=== PATIENT | male | born 1970 | race Caucasian/White ===

== ENCOUNTER 2021-09-19 11:47 | Emergency (ER) | payer OTHER ==
[~2021-09-19] VITALS: Ht 170.2 cm; Wt 86.2 kg
[2021-09-19 13:16] LABS: ABSOLUTE NEUTROPHILS 3.6 thou/uL (1.4-8.2); BASOPHILS 0.6 % (0.0-2.0); EOSINOPHILS 0.1 % (0.0-3.0); LYMPHOCYTES 17.6 % (24.0-44.0); MCHC 32.7 g/dL (28.0-37.0); MCV 85.6 fL (80.0-100.0); PLATELET COUNT 169 thou/uL (150-400); POLYS 73.7 % (36.0-66.0); RBC 5.02 mil/uL (4.50-6.00); RDW 14.3 % (10.5-14.5); WBC 4.8 thou/uL (4.0-11.0)
[2021-09-19 13:23] LABS: CALCIUM 8.4 mg/dL (8.5-10.1); CREATININE 1.3 mg/dL (0.7-1.3); POTASSIUM 3.8 mmol/L (3.5-5.1)
[2021-09-19 13:33] LABS: TOTAL BILIRUBIN 1.2 mg/dL (0.2-1.0); TOTAL PROTEIN 7.8 g/dL (6.4-8.2)
[2021-09-19 14:56] LABS: D-DIMER 0.84 ug/mLFEU (0.19-0.50); INR 1.05; PROTIME 11.4 Seconds (10.5-12.1)
--- NOTE | 2021-09-19 15:40 | EKG ---
[address] [address] ELECTROCARDIOGRAM REPORT Name: JEB ZULUAGA JR Room #: REG SOPHY [place]#: [id number] Admission: 09/19/21 Attend Phys: Discharge: Date of : 72 Report #: [id number] [facility] ED Test Date: 2021-09-19 Test Time: 11:55:37 Pat Name: JEB ZULUAGA Department: Room: Gender: Stick Inserter: NAYELY : 1970 Requested By: Judit Newman Order Number: [id number] MD: Jacob Crews Measurements Intervals [place] Rate: 121 P: 53 KS: 164 QRS: 51 QRSD: 86 T: 4 QT: 297 QTc: 422 Interpretive Statements Sinus tachycardia Baseline wander in lead(s) V2 No previous ECG available for comparison Electronically Signed On 09-19-2021 15:39:48 HOT PIPE GAUGER by Jacob Crews [email or web address] <ELECTRONICALLY SIGNED> By: Jacob Crews MD, [facility] 09/19/21 1539 1155 1155 Jacob Crews MD, FACC /EPI
[2021-09-19] MEDS ORDERED: IBUPROFEN 600600 M1 PO (16:05)
[2021-09-19] MEDS ORDERED: DECADRON6 MG PO (16:05)
[2021-09-19] MEDS ORDERED: ZOFRAN ODT4 MG PO (16:05)
[2021-09-19 16:24] VITALS: BP 132/91
== END 2021-09-19 16:33 | disposition home or self-care (01) ==
LOC: ER 11:47
PROVIDERS: Emergency Medicine; Student in an Organized Health Care Education/Training Program
DX: U07.1 COVID-19 (principal); I31.9 Disease of pericardium, unspecified

== ENCOUNTER 2021-10-02 10:21 | Inpatient (IN) | payer OTHER ==
[~2021-10-02] VITALS: Ht 170.2 cm; Wt 85.0 kg
--- NOTE | ~2021-10-02 | HC ---
[facility] [place] [address] CONSULTATION Name: JEB ZULUAGA JR Room #: 219-P ADM IN M.R.#: [id number] Admission: 10/02/21 Attend Phys: Wm Veras MD Discharge: Date of : 72 Report #: [id number] THIS REPORT FOR: cc: NOBLE - No family physician/PCP NOBLE - No family physician/PCP Gopi Child MD ~ DATE OF SERVICE: 10/03/2021 ROOM NUMBER: 219. HISTORY OF PRESENT ILLNESS: This is a 51-year-old male patient who was admitted with CVA. This patient presented to Emergency Room with a very poorly defined history. He is weak on the left side. It is not certain how long his weakness is going on. He appeared to be somewhat confused. He was there with COVID prior to Emergency Room, when his symptoms of this left-sided weakness started is not clear. He was seen by [facility] and he was outside the window for any intervention. Initial plan was to transfer this patient to some higher level of care, but he was refused because of COVID crisis and he was admitted here. He is a very poor historian. He says he is weak on the left side, is probably a few days' duration, but I am not sure how long actually it is going on. He had a CT scan and MRI since then. MRI was done without contrast only and that confirmed that the patient had multiple strokes, exclusively on the right side. They are small CVAs. A CT angiogram showed some abnormality of the right MCA, which is not very well defined. He continued to be about the same, the best I can tell. REVIEW OF SYSTEMS: Indicates he has COVID. He does have diabetes and hypertension. He does not provide much history in that regard. He is weak on the left side, looks like he is neglecting his weakness. He denies the use of drugs. [facility] has recommended toxicology screen, but I do not see it and I do not believe it was done, so I asked the nurses to see if they can do it today, although it may not be positive. He denies any smoking or drinking alcohol. In fact, he says he has never done the drugs. His rest of the 14-point review of system was mostly unremarkable. PAST MEDICAL HISTORY: Negative for any stroke. FAMILY HISTORY: According to him is negative for stroke. SOCIAL HISTORY: He was pretty emphatic that he does not drink any alcohol or smoke. PHYSICAL EXAMINATION: His examination indicate that he is a well-built [facility] [address] [place] [address] CONSULTATION Name: JEB ZULUAGA JR Room #: 219-P [facility] IN ..#: [id number] Admission: 10/02/21 Attend Phys: Wm Veras MD Discharge: Date of : 72 Report #: [id number] individual. He sometimes looks confused, but when I asked him what month it is, he is able to tell me; what hospital he is in, he is able to tell me. His cranial nerve examination shows a question of left facial palsy, but he did reasonably well with the visual field, but I cannot be certain because his cooperation was not all that great. He is definitely weak in the left upper and left lower extremity and his strength is estimated to be 3/5. He did position sense much better on the right side as compared to the left side, although he was able to tell the position sense on the left side also majority, but not all the time. He says touch feels same on both sides. He does have neglect on the left side. I cannot tell about the plantar. He is weak on the left side and it is difficult to tell about ataxia. He could not cooperate with the fundus examination. He is a pretty well-built individual. He does not have any edema. There is no thyroid mass. Blood pressure is 125/88, pulse is 66, temperature is 97.8. Cardiac examination appear unremarkable. No respiratory difficulty was noticed. His hearing and vision looks adequate. He had multiple testing done since admitted. His MRI and CT scan, I described above. Some reason, he also had a carotid Doppler, which was mostly unremarkable. LABORATORY DATA: His lab indicate that his white count is normal. IMPRESSION: 1. Right hemispheric cerebrovascular accident. 2. Abnormality of the right middle cerebral artery distribution, which is poorly defined. 3. Recent COVID. 4. Although he denied the drug abuse, he needed a toxicology screen. I do not find it in the chart, so I have asked the nurses to get it done. It is more than 24 hours since he has been in the hospital. If it is negative, it may not be much value, but if it is positive for something like cocaine that may help refine the diagnosis. 5. We will get an echocardiogram done in this patient. 6. I cannot send a hypercoagulable workup because he is on Lovenox, but I did send some workup like cardiolipin antibodies. 7. He will need PT, OT and speech therapy. PLAN: I discussed with Dr. Veras, the hospitalist that although his strokes are small and they are unlikely to bleed, I do not think he should be on combination of Lovenox, aspirin and Plavix. He is going to cut back his antithrombotic therapy. I discussed all of it with the patient and I discussed the patient with the nurse, Dr. Veras and I had a long discussion with the patient about what we are going to do and he wants to follow this plan. I would like to do an MRI with contrast and I have discussed all the potential side effect of contrast with the patient including irreversible dermatological side effect and the option of just not doing that. He understands that. I have talked to the MRI and they said they will get that done today, especially his MRA, I would like to [facility] [address] [place] [address] CONSULTATION Name: JEB ZULUAGA Room #: 219-P [facility] IN ..#: [id number] Admission: 10/02/21 Attend Phys: Wm Veras MD Discharge: Date of : 72 Report #: [id number] look at it and see if there is any reason to do a catheter angiogram in this patient. I spent more than 70 minutes of time taking care of this patient and majority was spent counseling, coordinating and reviewing his multiple imaging studies and records in the computer. Teleneurology will follow up this patient with you from tomorrow. By: 1347 2155 Gopi Child MD /nt
[~2021-10-02 10:21] MED LIST: DECADRON6 MG PO; IBUPROFEN 600600 M1 PO; ZOFRAN ODT4 MG PO
[2021-10-02 10:29] VITALS: BP 138/98
[2021-10-02 11:40] LABS: BASOPHILS 0.5 % (0.0-2.0); HEMATOCRIT 38.3 % (42.0-52.0); LYMPHOCYTES 14.4 % (24.0-44.0); MCH 28.4 pg (26.0-34.0); MCHC 34.1 g/dL (28.0-37.0); MCV 83.3 fL (80.0-100.0); MONOCYTES 6.2 % (1.0-8.0); PLATELET COUNT 288 thou/uL (150-400); POLYS 78.9 % (36.0-66.0); RBC 4.59 mil/uL (4.50-6.00); RDW 14.3 % (10.5-14.5); WBC 7.6 thou/uL (4.0-11.0)
[2021-10-02 11:56] LABS: CREATININE 1.3 mg/dL (0.7-1.3)
--- NOTE | 2021-10-02 13:22 | EKG ---
[place] [address] [facility] [place] [address] ELECTROCARDIOGRAM REPORT Name: JEB ZULUAGA JR Room #: REG SOPHY [place]#: [id number] Admission: 10/02/21 Attend Phys: Discharge: Date of : 72 Report #: [id number] [facility] ED Test Date: 2021-10-02 Test Time: 11:08:32 Pat Name: JEB ZULUAGA Department: Room: Gender: M Hair Boiler: SUHA : 1970 Requested By: Don Orantes Order Number: [id number] MD: Jacob Crews Measurements Intervals [place] Rate: 73 P: TX: QRS: 5 QRSD: 92 T: QT: 398 QTc: 439 Interpretive Statements NSR Compared to ECG 09/19/2021 11:55:37 T-wave abnormality now present Possible ischemia now present Sinus tachycardia no longer present Electronically Signed On 10-02-2021 13:22:14 MANAGER COSMETIC by Jacob Crews [email or web address] <ELECTRONICALLY SIGNED> By: Jacob Crews MD, [facility] 10/02/21 1322 1108 1108 Jacob Crews MD, FACC /EPI
[2021-10-03 00:12] VITALS: BP 139/95
[2021-10-03 00:32] VITALS: BP 159/101
[2021-10-03 03:15] VITALS: BP 125/88
--- NOTE | 2021-10-03 03:41 | NUR ---
PT ADMITTED TO ROOM 219, ORIENTED TO ROOM AND UNIT, ASSESSMENT COMPLETED, NO C/O PAIN AT ARRIVAL, HR NSR, BP ELEVATED AND RECHECKED AT 0315 @125/88 OTHER VITAL WNL, PRN PAIN MED GIVEN FOR C/O MCKEON, PT SLEEPING, WILL CON'T TO MONITOR PER PPOC.
[2021-10-03 06:32] LABS: CHOLESTEROL 183 mg/dL (<200); HDL CHOLESTEROL 53 mg/dL (>40); LDL CHOLESTEROL 112 mg/dL (<100); TC:HDL 3.5 Ratio (Not establshd); TRIGLYCERIDE 94 mg/dL (<150); VLDL 19 mg/dL (<40)
[2021-10-03 06:41] LABS: SERUM ASSESSMENT Clear
--- NOTE | 2021-10-03 15:49 | 2DMMODE ---
[facility] [place] [address] 2 D/M-MODE ECHOCARDIOGRAM Name: JEB ZULUAGA Room #: 219-P ADM IN M.R.#: [id number] Admission: 10/02/21 Attend Phys: mW Veras MD Discharge: Date of : 72 Report #: [id number] THIS REPORT FOR: cc: NOBLE - Shannan family physician/PCP NOBLE - Shannan family physician/PCP Jacob Crews MD [facility] ~ APPROVED REPORT Study performed: 10/03/2021 14:54:12 EXAM: Comprehensive 2D, Doppler, and color-flow Echocardiogram Patient Location: Bedside Room #: 219 Status: routine BSA: 1.98 HR: 64 bpm BP: 125/88 mmHg Rhythm: NSR Other Information Study Quality: Good Indications CVA/TIA Hypertension/HDD Echo Enhancing Agent Indication: Rule out Shunt Agent(s) / Amount(s) Used: Agitated Saline 7 cc 2D Dimensions RVDd: 36.15 mm IVSd: 11.36 (7-11mm) LVOT Diam: 22.66 (18-24mm) LVDd: 44.23 mm PWd: 10.61 (7-11mm) Ascending Ao: 30.43 (22-36mm) LVDs: 28.75 (25-40mm) Left Atrium: 31.42 (27-40mm) Aortic Root: 29.72 mm Volumes Left Atrial Volume (Systole) Single Plane 4CH: 33.67 mL Single Plane 2CH: 60.57 mL LA ESV Index: 27.00 mL/m2 [facility] [address] [place] [address] 2 D/M-MODE ECHOCARDIOGRAM Name: JEB ZULUAGA Room #: 219-P [facility] IN M.R.#: [id number] Admission: 10/02/21 Attend Phys: Wm Veras MD Discharge: Date of : 72 Report #: [id number] Aortic Valve AoV Peak Tim.: 1.08 m/s AO Peak Gr.: 4.67 mmHg LVOT Max P.67 mmHg LVOT Max V: 0.82 m/s TABATHA Vmax: 3.05 cm2 Mitral Valve E/A Ratio: 1.8 MV Decel. Time: 162.71 ms MV E Max Tim.: 0.77 m/s MV A Tim.: 0.43 m/s MV PHT: 47.19 ms IVRT: 96.89 ms Pulmonary Valve PV Peak Tim.: 0.79 m/s PV Peak Gr.: 2.47 mmHg Pulmonary Vein P Vein S: 0.37 m/s P Vein A: 0.23 m/s P Vein D: 0.30 m/s P Vein A Dur.: 87.7 msec P Vein S/D Ratio: 1.23 Tricuspid Valve TR Peak Tim.: 2.25 m/s TR Peak Gr.: 20.18 mmHg PA Pressure: 25.00 mmHg Left Ventricle The left ventricle is normal size. There is normal LV segmental wall motion. There is normal left ventricular wall thickness. Left ventricular systolic function is normal. The left ventricular ejection fraction is within the normal range. LVEF is 60-65%. The left ventricular diastolic function is normal. Right Ventricle The right ventricle is normal size. The right ventricular systolic function is normal. Atria The left atrium size is normal. Injection of contrast documented no interatrial shunt. The right atrium size is normal. Aortic Valve The aortic valve is normal in structure. No aortic regurgitation is present. There is no aortic valvular stenosis. [facility] [address] [place] [address] 2 D/M-MODE ECHOCARDIOGRAM Name: JEB ZULUAGA Room #: 219-P [facility] IN .R.#: [id number] Admission: 10/02/21 Attend Phys: Wm Veras MD Discharge: Date of : 72 Report #: [id number] Mitral Valve The mitral valve is normal in structure. Trace mitral regurgitation. No evidence of mitral valve stenosis. Tricuspid Valve The tricuspid valve is normal in structure. There is trace tricuspid regurgitation. Estimated PAP 25 mmHg. There is no pulmonary hypertension. Pulmonic Valve The pulmonary valve is normal in structure. There is no pulmonic valvular regurgitation. Great Vessels The aortic root is normal in size. IVC is normal in size and collapses >50% with inspiration. Pericardium There is no pericardial effusion. <Conclusion> Normal left ventricle size/wall thickness central ejection fraction 60% Normal right ventricle size/function Normal atrial size Normal aortic/mitral valve structure and function Trace tricuspid valve insufficiency Pulmonary systolic pressure estimated 25 mmHg No pericardial effusion Normal aortic root size No evidence of ASD/VSD by color flow/bubble study <ELECTRONICALLY SIGNED> By: Jacob Crews MD, FACC 10/03/21 1548 1548 1548 Jacob Crews MD, FACC /INF
--- NOTE | 2021-10-03 16:41 | NUR ---
PATIENT ADMITTED FOR CVA, DVT. CHART REVIEWED AND DISCUSSED WITH CARE TEAM. CM MET WITH PT THIS DAY. CM ROLE INTRODUCED. PT REPORTS HE LIVES AT HOME ALONE. HE DENIES STAIR IN/OUT THE HOME. 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 STILL DRIVES AND WORKS. HE DENIES USE OF HH/SNF/REHAB SERVICES IN THE PAST. HE REPORT HIS GOAL IS TO RETURN ONCE MEDICALLY STABLE TO DO SO. POSSIBLE DC PLAN TO [facility]. THEY ARE FOLLOWING. AWAITING THERAPY RECOMMENDATIONS FOR FURTHER DC PLANNING. CM WILL CONTINUE TO FOLLOW.
--- NOTE | 2021-10-03 17:03 | NUR ---
ASSESSMENT CHARTED - MEDS PER ERUM - APOLLO DIET AND FLUIDS. GIVEN MORPHINE X 1 DOSE FOR CO'S OF GENERALIZED PAIN AND LORAZEPAM FOR NERVES - EACH WITH GOOD EFFCT PT STATED - HE LIKES THEY WAY THEY MAKE HIM FEEL. SEEN BY PHYS AND OCC THERAPY. PT WITH WEAKNESS TO L SIDE OF BODY - NO CO'S AT THE PRESENT TIME.
[2021-10-03 20:26] VITALS: BP 121/80
[2021-10-04 04:51] VITALS: BP 131/94
[2021-10-04 05:29] LABS: URINE BILIRUBIN NEGATIVE (Negative); URINE BLOOD 1+ (Negative); URINE CLARITY CLEAR; URINE COLOR YELLOW; URINE GLUCOSE-RANDOM* NEGATIVE (Negative); URINE KETONES NEGATIVE (Negative); URINE LEUKOCYTES-REFLEX NEGATIVE (Negative); URINE NITRITE-REFLEX NEGATIVE (Negative); URINE PROTEIN (DIPSTICK) NEGATIVE (Negative); URINE UROBILINOGEN 0.2 E.U./dl (0.2-1.0)
[2021-10-04 05:52] LABS: BACTERIA-REFLEX 1-9 Few /HPF (None Seen); CASTS None Seen /LPF (None Seen); CRYSTALS None Seen /LPF (None Seen); MUCUS 0-3 Light strn/LPF (None Seen); SQUAMOUS 0-3 Few /LPF (0-3); URINE RBC 3-10 Few /HPF (NONE SEEN); URINE WBC-REFLEX 0-5 Rare /HPF (0-5)
--- NOTE | 2021-10-04 07:42 | NUR ---
ALERT AND ORIENTED, MORPHIN GIVEN FOR PAINX2, SR/SB ON TELE, STILL SOME WEAKNESS TO THE L. ARM AND L. LEG, NO DISTRESS NOTED, VSS, MEDS GIVEN PER EMAR, ASSESSMENTS CHARTED, REPORT GIVEN TO DAY RN
[2021-10-04 08:20] VITALS: BP 147/98
[2021-10-04 09:55] LABS: AMP/METHAMP Negative (Negative); BARBITURATES Negative (Negative); BENZODIAZEPINES Negative (Negative); COCAINE Negative (Negative); METHADONE Negative (Negative); OPIATES POSITIVE (Negative); PCP Negative (Negative)
[2021-10-04 16:15] VITALS: BP 111/77
--- NOTE | 2021-10-04 16:19 | NUR ---
Pt has been screened by [employer] and they are helping him submit a [place] Medicaid application. [facility] to bring in his [place] address as he recently moved there. [facility] is following along for possible rehab stay pending approval due to pt pay status. [employer] is setting up his SS disability application phone interview as well. Should the pt improve and be able to return directly home;resources for f/u care/saftey net clinics has been noted in his dc instructions.
[2021-10-04 16:22] VITALS: BP 147/98
--- NOTE | 2021-10-04 16:23 | NUR ---
CM MET WITH PT THIS DAY. PT REPORTS HIS GOAL ONCE MEDICALLY STABLE TO DC IS TO GO HOME. HE REPORTS HE DOES NOT FEEL HE WANTS TO GO ANYWHERE FOR THERAPY. 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 HE HAS BEEN DOING SIT UPS IN HIS ROOM. TRYING TO DO PUSH UP BUT HOLDS HIS LEFT SHOULDER AND SAID HE WAS WEAK. HE REPORTS MOST DEFICIT IS HIS SPEECH. PT ABLE TO SPEAK CLEARLY AND ALTHOUGH HAD SOME DIFF WITH WORD FINDING. PT REPORTS PHYSICIAN INSTRUCTED HE WOULD BE HERE THROUGH THE WEEKEND FOR MORE ST. NO FURTHER CM INTERVENTIONS INDICATED AT THIS ITME.
[2021-10-04 19:51] VITALS: BP 120/78
[2021-10-05 04:45] VITALS: BP 100/61
--- NOTE | 2021-10-05 05:13 | NUR ---
ASSUMED PT CARE AT 1900, ALERT AND ORIENTED, DENIES PAIN OR SOB, SR ON TELE, ASSESSMENTS CHARTED, WALKED AROUND THE HALLWAY, STEADY GAIT, STILL SOME SLURRED SPEECH, NO DISTRESS NOTED, WILL CONTINUE TO MONITOR
[2021-10-05 08:10] VITALS: BP 99/68
[2021-10-05 15:50] VITALS: BP 129/80
[2021-10-05 19:07] LABS: ANA INTERPRETATION Negative (Negative)
[2021-10-05 20:36] VITALS: BP 125/86
[2021-10-06 04:36] VITALS: BP 114/78
--- NOTE | 2021-10-06 07:18 | NUR ---
PT REMAINS A&O WITH SLIGHT LEFT SIDED WEAKNESS, VSS, UP ADLIB IN ROOM THRU THE NOC, NO C/O PAIN, REPORT GIEN TO NEXT SHIFT TO CON'T PPOC..
[2021-10-06 07:55] VITALS: BP 111/79
[2021-10-06 15:55] VITALS: BP 128/64
[2021-10-06 20:01] VITALS: BP 137/81
[2021-10-07 03:00] VITALS: BP 132/81
--- NOTE | 2021-10-07 03:09 | NUR ---
pt reported chest pain at 245 am vs checked wnl see flowsheet, ekg performed reading sr. ativan given po offered nitroglycerin pt denied need for rated pain a 10 or more at onset and down to 7 after ativan. resting in bed reports pain subsiding to continue to monitor.
--- NOTE | 2021-10-07 05:13 | NUR ---
PROGRESS PT A/O X4 DENIED PAIN AT START OF SHIFT BUT REPORTED CHEST PAIN AT 3 EKG PERFORMED READING SR, ATIVAN GIVEN PT STATED PAIN SUBSIDING SLEPT THE REMAINDER OF THE SHIFT WITHOUT C/O PAIN.
--- NOTE | 2021-10-07 07:34 | EKG ---
[address] [place] [address] ELECTROCARDIOGRAM REPORT Name: JEB ZULUAGA JR Room #: 219-P ADM IN M.R.#: [id number] Admission: 10/02/21 Attend Phys: Wm Veras MD Discharge: Date of : 72 Report #: [id number] [facility] Test Date: 2021-10-07 Test Time: 02:52:33 Pat Name: JEB ZULUAGA Department: Room: 219 P Gender: M Claims Representative: KAVYAK : 1970 Requested By: Allison Willson Order Number: [id number] MD: Jacob Crews Measurements Intervals [place] Rate: 66 P: 25 CA: 205 QRS: 7 QRSD: 90 T: 4 QT: 387 QTc: 406 Interpretive Statements Sinus rhythm Borderline prolonged CA interval Compared to ECG 10/02/2021 11:08:32 No significant changes Electronically Signed On 10-07-2021 7:34:32 TRANSLATOR by Jacob Crews [email or web address] <ELECTRONICALLY SIGNED> By: Jacob Crews MD, [facility] 10/07/21 0734 1 0252 Jacob Crews MD, FACC /EPI
[2021-10-07 07:50] VITALS: BP 122/80
[2021-10-07] MEDS ORDERED: LOPRESSOR50 MG PO (13:30)
[2021-10-07] MEDS ORDERED: XARELTO15 MG PO (13:30)
[2021-10-07] MEDS ORDERED: LIPITOR40 MG PO (13:30)
[2021-10-07] MEDS ORDERED: CHILDREN'S ASPI81 M1 PO (13:30)
--- NOTE | 2021-10-07 14:42 | NUR ---
DISCHARGE NOTE: NEVAEH reviewed chart and spoke with nursing and attending physician. Pt is medically stable for discharge home today. [employer] is assisting pt with Medicaid/SS disability applications. NEVAEH discussed case with [facility] coordinator of rehabilitation services. Pt is too high level for admission to in acute rehab. Recommendation made for pt to consider outpatient therapy. NEVAEH met with pt at bedside. Discussed discharge plan with pt. Pt is aware and in agreement with plan. NEVAEH explained that new prescriptions will paid for by case mgmt. NEVAEH provided pt with Health Resource guide, safety net clinic list and prescription discount card. Pt states he will be seeing Dr. Jim Romero in [facility] for follow up care. SW discussed outpatient therapy. Pt states he is doing well and will f/u with Dr. Romero for recommendations and referrals if needed. Pt states he will have transportation home when discharged. NEVAEH faxed face sheet to [facility]. Meds to be vouched for. NEVAEH notified Director of Case Mgmt. No additional SW needs identified at this time. NEVAEH is available to assist should needs arise.
--- NOTE | 2021-10-07 15:59 | NUR ---
Patient has been discharged. IV removed and in no acute distress.
[2021-10-07 22:06] LABS: SYPHILIS AB Non Reactive (Non Reactive)
== END 2021-10-07 16:11 | disposition home or self-care (01) | DRG 65 ==
LOC: ER 10:21 → EROBS 17:18 → 2N 10-03 00:15
PROVIDERS: Emergency Medicine; Nurse Practitioner; Psychiatry & Neurology Neuromuscular Medicine; ADMIT Hospitalist; ATTEND Hospitalist
DX: I63.9 Cerebral infarction, unspecified (principal); I82.4Z1 Acute embolism and thrombosis of unspecified deep veins of right distal lower extremity; G81.94 Hemiplegia, unspecified affecting left nondominant side; Z20.822 Contact with and (suspected) exposure to COVID-19; I10 Essential (primary) hypertension; E66.01 Morbid (severe) obesity due to excess calories; Z68.29 Body mass index [BMI] 29.0-29.9, adult
CPT/HCPCS: 10081